=== PATIENT | female | born 1990 | race Caucasian/White ===

== ENCOUNTER 2017-02-13 12:18 | Emergency (ER) | payer OTHER ==
[~2017-02-13] VITALS: Ht 165.1 cm; Wt 81.6 kg
--- NOTE | 2017-02-13 12:29 | NUR ---
PATIENT IS NOT IN ED WAITING ROOM. CALLED 3 TIMES, NO RESPONSE. UNABLE O TRIAGE AT THIS TIME. WILL TRY AGAIN LATER.
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
--- NOTE | 2017-02-13 13:15 | NUR ---
DR DILL AT BS FOR AN UPDATE.
--- NOTE | 2017-02-13 13:23 | NUR ---
Patient discharged to home in stable condition. Written and verbal after care instructions given. Patient verbalizes understanding of instruction.
[2017-02-13 13:24] VITALS: BP 136/82
== END 2017-02-13 13:26 | disposition home or self-care (01) ==
LOC: ER 12:22
DX: S80.02XA Contusion of left knee, initial encounter (principal); S80.01XA Contusion of right knee, initial encounter; S69.91XA Unspecified injury of right wrist, hand and finger(s), initial encounter; V43.62XA Car passenger injured in collision with other type car in traffic accident, initial encounter; Y93.89 Activity, other specified; Y92.410 Unspecified street and highway as the place of occurrence of the external cause; Y99.8 Other external cause status
CPT/HCPCS: 73130; 99284; A4606; Z7610

== ENCOUNTER 2020-10-22 10:04 | Emergency (ER) | payer MEDICAID, OTHER ==
[~2020-10-22] VITALS: Ht 165.1 cm; Wt 95.3 kg
[2020-10-22 10:10] VITALS: BP 125/79
[2020-10-22] MEDS ORDERED: CLIN150C16 PO (10:16)
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
--- NOTE | 2020-10-22 10:33 | NUR ---
Patient discharged to home in stable condition. Written and verbal after care instructions given. Patient verbalizes understanding of instruction.
== END 2020-10-22 10:42 | disposition home or self-care (01) ==
LOC: ER 10:04
DX: L03.213 Periorbital cellulitis (principal)

== ENCOUNTER 2023-02-05 19:47 | Emergency (ER) | payer MEDICAID, OTHER ==
[~2023-02-05] VITALS: Ht 165.1 cm; Wt 99.8 kg
[~2023-02-05 19:47] MED LIST: CLIN150C16 PO
[2023-02-05 20:20] VITALS: TEMP 98
[2023-02-05] MEDS ORDERED: HYDROCODONE/APAP 5/325MG TABLET ONE (20:23)
[2023-02-05] MEDS ORDERED: HYDROCODONE/APAP 5/325MG TABLET PO ONE (20:30)
[2023-02-05] MEDS ORDERED: IBUP-1955 PO (21:30)
[2023-02-05] MEDS ORDERED: HYDR-4209 PO (21:30)
[2023-02-05 21:37] VITALS: BP 139/77; O2SAT 98
== END 2023-02-05 21:45 | disposition home or self-care (01) ==
LOC: ER 19:58
DX: S52.591A Other fractures of lower end of right radius, initial encounter for closed fracture (principal); F17.200 Nicotine dependence, unspecified, uncomplicated; Z79.899 Other long term (current) drug therapy; W01.0XXA Fall on same level from slipping, tripping and stumbling without subsequent striking against object, initial encounter; Y93.89 Activity, other specified; Y92.89 Other specified places as the place of occurrence of the external cause; Y99.8 Other external cause status
CPT/HCPCS: 73090-TC; 73110